=== PATIENT | male | born 1990 ===

== ENCOUNTER 2017-03-14 15:17 | Emergency (ER) | payer MEDICARE, MEDICAID ==
[2017-03-14 15:17] VITALS: BMI 21.5
--- NOTE | 2017-03-14 16:02 | ED PDOC ---
HPI: General Adult Time Seen by Provider: 03/14/17 15:26 Chief Complaint (Nursing): Lower Extremity Problem/Injury History Per: Patient Additional Complaint(s): Pt. states on Wednesday he slipped going down the stairs landing on his lower back. Pt. states he has not taken any medications to help relieve symptoms but does admit to smoking marijuana today. Further states pain radiates down the R leg. Denies incontinence, hematuria, dysuria, N/V/D, abdominal pain, fever. Past Medical History Reviewed: Historical Data, Nursing Documentation, Vital Signs Vital Signs: Last Vital Signs Temp 98.6 F 03/14/17 15:18 Pulse 101 H 03/14/17 15:18 Resp 16 03/14/17 15:18 BP 101/61 03/14/17 15:18 Pulse Ox 97 03/14/17 17:36 - Medical History PMH: Hepatitis (Hep C), HIV Denies: Chronic Kidney Disease - Family History Family History: States: No Known Family Hx - Home Medications Home Medications: Ambulatory Orders Medication Instructions Recorded Cyclobenzaprine [Cyclobenzaprine 10 mg PO Q8 PRN #30 tab 03/14/17 HCl] Naproxen [Naprosyn] 500 mg PO BID PRN #30 tab 03/14/17 - Allergies Allergies/Adverse Reactions: Allergies Allergy/AdvReac Type Severity Reaction Status Date / Time Penicillins Allergy RASH Verified 11/15/15 03:58 Review of Systems ROS Statement: Except As Marked, All Systems Reviewed And Found Negative Musculoskeletal: Positive for: Back Pain Physical Exam - Physical Exam Appears: Positive for: Well, Non-toxic, No Acute Distress Skin: Positive for: Normal Color, Warm. Negative for: Rash Eye Exam: Positive for: Normal appearance Gastrointestinal/Abdominal: Positive for: Normal Exam, Soft. Negative for: Tenderness Back: Positive for: Normal Inspection, Muscle Spasm (b/l paralumbar area). Negative for: L CVA Tenderness, R CVA Tenderness, Vertebral Tenderness Extremity: Positive for: Normal ROM Neurologic/Psych: Positive for: Alert, Oriented. Negative for: Aphasia, Facial Droop - ECG O2 Sat by Pulse Oximetry: 97 - Progress ED Course And Treament: Toradol 30mg IM, flexeril 10mg PO ordered. LS Spine x-ray ordered. LS spine x-ray: 1. No acute lumbar spine fracture seen. If radiographic findings are out of proportion to clinical assessment, further evaluation can be obtained with CT. 2. Mild approximately 5 mm retrolisthesis of L3 and L4. Minimal scoliosis. 3. Extensive calcification overlying both kidneys compatible with medullary nephrocalcinosis. Pt. reports feeling much better. Instructed to f/u with PMD for further evaluation of medullary nephrocalcinosis. Disposition - Clinical Impression Clinical Impression: Low back pain - Patient ED Disposition Is Patient to be Admitted: No - Disposition Disposition: Routine/Home Disposition Time: 18:18 Condition: STABLE Prescriptions: Cyclobenzaprine [Cyclobenzaprine HCl] 10 mg PO Q8 PRN #30 tab PRN Reason: Muscle Spasm Naproxen [Naprosyn] 500 mg PO BID PRN #30 tab PRN Reason: Pain Instructions: Acute Low Back Pain (ED) Forms: [facility] [employer] [facility] ([place])
[2017-03-14 18:29] VITALS: BP 120/78; PULSE 78; RESP 18; TEMP 97.5; O2SAT 98
--- NOTE | 2017-03-15 13:46 | RAD ---
PROCEDURE: Radiographs of the Lumbar Spine. HISTORY: trauma COMPARISON: No prior. FINDINGS: BONES: Normal alignment. No listhesis. No fracture. DISC SPACES: Unremarkable. OTHER FINDINGS: Incidental note is made of kidney renal calcifications in a pattern suspicious for medullary sponge kidney. IMPRESSION: Unremarkable radiographs of the lumbar spine. 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
== END 2017-03-14 18:29 | disposition home or self-care (01) ==
LOC: H.ER 15:17
DX: M54.5 Low back pain (principal); M41.9 Scoliosis, unspecified; Z88.0 Allergy status to penicillin
CPT/HCPCS: 72114; 96372; 99282; J1885